=== PATIENT | male | born 2000 | race Caucasian/White ===

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

== ENCOUNTER 2019-03-16 17:24 | Emergency (ER) | payer SELFPAY ==
[2019-03-16 17:32] VITALS: BP 143/76
--- NOTE | 2019-03-16 17:57 | ER Document Report ---
HPI - HPI Time Seen by Provider: 03/16/19 17:41 Pain Level: Denies Context: Patient is a 18-year-old male who presents emergency department with a chief complaint of allergy symptoms. Patient states that he has had his symptoms for the past 2 days. Patient states that he might have had a fever this morning. Patient states that he was out of work and he really actually just wants a work note. - ROS Systems Reviewed and Negative: Yes All other systems reviewed and negative - CONSTITUTIONAL Constitutional: REPORTS: Fever - Low-grade. DENIES: Chills - EENT EENT: REPORTS: Nasal Drainage-Clear, Congestion. DENIES: Sore Throat, Nasal Drainage-Purulent, Eye problems - NEURO Neurology: DENIES: Headache - CARDIOVASCULAR Cardiovascular: DENIES: Chest pain - RESPIRATORY Respiratory: REPORTS: Coughing. DENIES: Trouble Breathing - DERM Skin Color: Normal Skin Problems: None Past Medical History - Social History Smoking Status: Current Every Day Smoker Frequency of alcohol use: Social Drug Abuse: None Family History: Reviewed & Not Pertinent Patient has suicidal ideation: No Patient has homicidal ideation: No Renal/ Medical History: Denies: Hx Peritoneal Dialysis Psychiatric Medical History: Reports: Hx Attention Deficit Hyperactivity Disorder - Immunizations Immunizations up to date: Yes Vertical Provider Document - CONSTITUTIONAL Agree With Documented VS: Yes Exam Limitations: No Limitations General Appearance: No Apparent Distress - INFECTION CONTROL TRAVEL OUTSIDE OF THE [place] IN LAST 30 DAYS: No - HEENT HEENT: Atraumatic, PERRLA, Pharyngeal Exudate. negative: Conjuctival Injection, Pharyngeal Tenderness, Pharyngeal Erythema, Tympanic Membrane Red, Tympanic Membrane Bulging Notes: Edema and erythema to the nasal mucosa - NECK Neck: Normal Inspection, Supple. negative: Lymphadenopathy-Left, Lymphadenopa thy-Right - RESPIRATORY Respiratory: Breath Sounds Normal, No Respiratory Distress - CARDIOVASCULAR Cardiovascular: Regular Rate, Regular Rhythm, No Murmur Pulses: Normal: Radial - MUSCULOSKELETAL/EXTREMETIES Musculoskeletal/Extremeties: FROM - NEURO Level of Consciousness: Awake, Alert, Appropriate - DERM Integumentary: Warm, Dry, No Rash Course - Re-evaluation Re-evalutation: 03/16/19 I have offered the patient an influenza screen and he states that he does not want to be tested for the flu. He states that he just wants to get a doctor's note. Patient states that he has Flonase, Claritin, and Sudafed at home. Patient states that he takes those medications to help with his symptoms. I educated the patient on proper use of Flonase, as he was not taking this medication every day. Patient states that he will follow-up with primary care. As a very low suspicion for pneumonia, influenza, or any life-threatening etiology at this time. Patient appears well. Follow-up precautions were given. Verbal discharge instructions were given to the patient. They verbalized understanding. They are stable for discharge. - Vital Signs Vital signs: Temp Pulse Resp BP Pulse Ox 99.4 F 91 H 16 143/76 H 96 03/16/19 17:31 03/16/19 17:31 03/16/19 17:31 03/16/19 17:31 03/16/19 17:31 Discharge - Discharge Clinical Impression: Seasonal allergies Condition: Stable Disposition: HOME, SELF-CARE Additional Instructions: You were seen today in the emergency department for allergy symptoms. Please continue your Flonase every day. You can take your Claritin every 12 hours if it is every 12 hour use. Add Sudafed as needed. Please follow-up with your primary care provider regards to this visit. You can take ibuprofen 600 mg and acetaminophen 1000 mg every 6 hours for any pain or fever. Please stop smoking, as it is bad for you. Cut back 1 cigarette a week and in 10 weeks you will be free from smoking. Forms: Return to Work Referrals: CARMEN KASPER NP [NURSE PRACTITIONER] - Follow up in 3-5 days
== END 2019-03-16 18:00 | disposition home or self-care (01) ==
LOC: ER 17:24
DX: J30.1 Allergic rhinitis due to pollen (principal); F17.200 Nicotine dependence, unspecified, uncomplicated
CPT/HCPCS: 99283